=== PATIENT | male | born 1970 | race Caucasian/White ===

== ENCOUNTER 2020-06-06 20:12 | Emergency (ER) | payer SELFPAY ==
[2020-06-06] MEDS ORDERED: KETOROLAC TROMETHAMINE INJ/PF 30 MG/1 ML SDV IV ONE (21:10)
[2020-06-06] MEDS ORDERED: PROCHLORPERAZINE EDISYLATE INJ 10 MG/2 ML VIAL IV ONE (21:10)
[2020-06-06] MEDS: NORMAL SALINE 1000 ML 1,000 ML IV PRN ×2 (21:37→22:37)
[2020-06-06 21:47] LABS: ABSOLUTE EOSINOPHILS # (AUTO) 0.1 10^3/uL (0.0-0.6); ABSOLUTE LYMPHOCYTES (AUTO) 1.4 10^3/uL (0.5-4.7); ABSOLUTE MONOCYTES (AUTO) 0.9 10^3/uL (0.1-1.4); ABSOLUTE NEUT (AUTO) 6.4 10^3/uL (1.7-8.2); BASOPHILS % (AUTO) 0.5 % (0-2); EOSINOPHILS % (AUTO) 0.7 % (0-6); HEMATOCRIT 38.6 % (37.9-51.0); HEMOGLOBIN 13.3 g/dL (13.5-17.0); LYMPHOCYTES % (AUTO) 16.5 % (13-45); MEAN CORPUSCULAR HEMOGLOBIN 28.2 pg (27.0-33.4); MEAN CORPUSCULAR HGB CONC 34.6 g/dL (32.0-36.0); MEAN CORPUSCULAR VOLUME 82 fl (80-97); MONOCYTES % (AUTO) 9.7 % (3-13); PLATELET COUNT 309 10^3/uL (150-450); RED BLOOD COUNT 4.73 10^6/uL (4.35-5.55); RED CELL DISTRIBUTION WIDTH 14.8 % (11.5-14.0); SEGMENTED NEUTROPHILS % (AUTO) 72.6 % (42-78); TOTAL CELLS COUNTED % (AUTO) 100 %; WHITE BLOOD COUNT 8.8 10^3/uL (4.0-10.5)
[2020-06-06 22:07] LABS: ALBUMIN 3.5 g/dL (3.5-5.0); ALKALINE PHOSPHATASE 72 U/L (38-126); ANION GAP 6 (5-19); ASPARTATE AMINO TRANSFERASE 33 U/L (17-59); BILIRUBIN,DIRECT 0.4 mg/dL (0.0-0.4); BILIRUBIN,TOTAL 0.7 mg/dL (0.2-1.3); BLOOD UREA NITROGEN 13 mg/dL (7-20); CALCIUM 8.6 mg/dL (8.4-10.2); CARBON DIOXIDE 28 mmol/L (22-30); CHLORIDE 99 mmol/L (98-107); CREATINE KINASE 66 U/L (55-170); GLUCOSE 193 mg/dL (75-110); PHOSPHORUS 3.4 mg/dL (2.5-4.5); POTASSIUM 3.4 mmol/L (3.6-5.0); TOTAL PROTEIN 6.5 g/dL (6.3-8.2)
[2020-06-06 22:08] LABS: ACETAMINOPHEN < 10 ug/mL (10-30); SALICYLATE < 1.0 mg/dL (2.0-20.0)
[2020-06-06] MEDS ORDERED: POTASSIUM CHLORIDE 10 MEQ TABLET.ER PO ONE (22:31)
--- NOTE | 2020-06-06 22:42 | ER Document Report ---
ED General - General Chief Complaint: Headache Stated Complaint: FEVER,HEADACHE, NOSE BLEED Notes: 49-year-old male no significant past medical history presents with 1 week of fever associated with intermittent bilateral frontal headache, myalgia, muscle cramps, rhinorrhea, and generalized malaise. Patient says he has had similar symptoms when he has been sick in the past with flu but came to the ED today because symptoms have been taking too long to resolve. Patient says he has been taking Tylenol "every 4 hours "for his pain which temporarily relieves his sym ptoms but then they returned. Patient endorses having had similar headaches in the past when he has had fever or viruses, but has been irritated that this 1 has lasted for so long. Patient says he is sure he does not have COVID but cannot give me any reasons why, has not had any COVID testing. Patient denies any neck pain or stiffness, sinus pain, throat pain, cough, shortness of breath, dizziness, fainting, hypertension/hyperlipidemia/diabetes, HIV history, immune compromise, sick contacts, recent travel, rashes, drug use - Related Data Allergies/Adverse Reactions: No Known Allergies Allergy (Unverified 06/06/20 20:44) Past Medical History - General Information source: Patient - Social History Smoking Status: Current Every Day Smoker Family History: Reviewed & Not Pertinent Review of Systems - Review of Systems Notes: REVIEW OF SYSTEMS: CONSTITUTIONAL : + fever, chills, or sweats. EENT: Denies recent sinus symptoms, denies throat pain CARDIOVASCULAR: Denies chest pain, [place] RESPIRATORY: Denies cough, denies shortness of breath. GASTROINTESTINAL: Denies abdominal pain, nausea/vomiting. GENITOURINARY: Denies difficulty urinating, painful urination. MUSCULOSKELETAL: Denies neck pain, back pain. SKIN: Denies rash or skin lesions. HEMATOLOGIC : Denies easy bruising or bleeding. LYMPHATIC: Denies swollen, enlarged glands. NEUROLOGICAL: + headache, denies change in gait. PSYCHIATRIC: Denies anxiety or stress or depression. Physical Exam - Vital signs Vitals: Temp Pulse Resp BP Pulse Ox 98.0 F 103 H 20 119/79 99 06/06/20 20:19 06/06/20 20:19 06/06/20 20:19 06/06/20 20:19 06/06/20 20:19 - Notes Notes: PHYSICAL EXAMINATION: GENERAL: Well-appearing, well-nourished, mildly uncomfortable appearing middle- aged man appearing younger than stated age and in no acute distress. HEAD: Atraumatic, normocephalic. EYES: Pupils equal round and appropriate constriction, sclera anicteric, c onjunctiva are normal. ENT: nares patent, dry mucous membranes. NECK: Normal range of motion, supple without lymphadenopathy LUNGS: Breath sounds clear to auscultation bilaterally and equal. No wheezes rales or rhonchi. HEART: Regular rate and rhythm without murmurs ABDOMEN: Soft, nontender, no guarding, no masses, no CVAT EXTREMITIES: Normal range of motion, no pitting or edema. No cyanosis. NEUROLOGICAL: Awake, alert, conversing appropriately, moves all extremities spontaneously. Cranial nerves II through XII intact bilaterally, normal wrnlry-ro-avpm bilaterally, 5 out of 5 strength in all extremities, normal sensation in all extremities PSYCH: Normal mood, normal affect. SKIN: Warm, Dry, normal turgor, no rashes or lesions noted. Course - Re-evaluation Re-evalutation: 06/06/20 23:33 Patient with 1 week of flulike symptoms. Headache intermittent and not consistent with meningitis, intracranial hemorrhage, brain abscess, increased ICP, no red flags on history and no neuro symptoms and normal neuro exam. Headache likely secondary to dehydration from insensible losses from 1 week of viral symptoms with increased sensible losses and patient not increasing p.o. intake to compensate. Obtain CK to rule out rhabdo and BMP to assess electrolytes. Sodium very mildly decreased and potassium was mildly decreased. Gave supplemental potassium and instructed patient on increasing p.o. fluid and electrolyte intake. Patient's glucose was 193 which is above the level that would be expected from transient hypoglycemia from infection and I informed patient of this finding and told him that he might have developed diabetes and that he needs to follow this with a primary doctor. No DKA currently present, I gave patient return to ED precautions for worsening viral symptoms, headache, signs of meningitis, DKA, HONK, electrolyte abnormalities, rhabdo, myocarditis which he demonstrated understanding of. Patient ready for discharge with PCP follow-up. Patient given copy of all lab results to bring to PCP appointment. The patient was evaluated during the global COVID-19 pandemic and that diagnosis was suspected/considered upon their initial presentation. Their evaluation, treatment and testing was consistent with current guidelines for patients who present with complaints or symptoms that may be related to COVID-19. - Vital Signs Vital signs: Temp Pulse Resp BP Pulse Ox 97.9 F 85 16 102/59 L 98 06/06/20 22:45 06/06/20 22:45 06/06/20 22:45 06/06/20 22:45 06/06/20 22:45 - Laboratory Result Diagrams: 06/06/20 21:36 06/06/20 21:36 Laboratory results interpreted by me: 06/06/20 06/06/20 21:36 21:36 Hgb 13.3 L RDW 14.8 H Sodium 133.4 L Potassium 3.4 L Glucose 193 H Salicylates < 1.0 L Acetaminophen < 10 L Discharge - Discharge Clinical Impression: Viral syndrome, Hyperglycemia, Hypokalemia, Hyponatremia Headache Qualifiers: Headache type: unspecified Headache chronicity pattern: acute headache Intractability: not intractable Qualified Code(s): R51 - Headache Condition: Stable Disposition: HOME, SELF-CARE Additional Instructions: Hyponatremia You have an abnormally low level of serum sodium, called hyponatremia. Low serum sodium may cause weakness, fatigue, confusion, or even seizures. Usually, low sodium is due to taking diuretics (water pills), combined with drinking too much water. It can also be due to excessive vomiting or diarrhea. If no obvious cause is evident, further evaluation will be necessary. If the hyponatremia results from taking diuretics, it's treated by restricting the amount of water you can drink. If it's due to vomiting and diarrhea, it's treated by drinking liberal amounts of rehydration solution (for example Lytren or Pedialyte). A follow-up blood test is often done to see that the sodium is returning to normal. Call the physician if you have severe weakness, muscle twitching or cramping, palpitations (pounding or irregular heartbeat), confusion, headache, seizures, or any other new or alarming symptoms.Hyponatremia You have an abnormally low level of serum sodium, called hyponatremia. Low serum sodium may cause weakness, fatigue, confusion, or even seizures. Usually, low sodium is due to taking diuretics (water pills), combined with drinking too much water. It can also be due to excessive vomiting or diarrhea. If no obvious cause is evident, further evaluation will be necessary. If the hyponatremia results from taking diuretics, it's treated by restricting the amount of water you can drink. If it's due to vomiting and diarrhea, it's treated by drinking liberal amounts of rehydration solution (for example Lytren or Pedialyte). A follow-up blood test is often done to see that the sodium is returning to normal. Call the physician if you have severe weakness, muscle twitching or cramping, palpitations (pounding or irregular heartbeat), confusion, headache, seizures, or any other new or alarming symptoms. Hyperglycemia (High Blood Sugar) You have an abnormally high blood sugar. Not all high blood sugar requires long-term treatment. High blood sugar can be due to medications, or the stress of illness. (These cases are "borderline diabetes.") If the doctor feels your high blood sugar might resolve with time, you may not require treatment now. You must see a primary doctor for further evaluation. It's very important that you follow through, to see if the blood sugar returns to normal levels. Uncontrolled high blood sugar leads to early heart disease, strokes, nerve damage, eye damage, and kidney damage. Call the physician if there is faintness, excess sleepiness, or very rapid breathing. Patient was provided with discharge information including: As a person under investigation for Covid 19, the [place] department of Health and Human Services, division of public health advises you to adhere to the following guidance until your test results are reported to you. If your test result is positive, you will receive additional information from your provider and your local health department at that time. Remain at home until you are cleared by the health provider or public health authorities. Keep a log of visitors to your home, notify any visitors to your home of your is olation status. If you plan to move to a new address or leave the county, notify the local health department in your County. Call your doctor or seek care if you have an urgent medical need. Before seeking medical care, call ahead to get instructions from the provider before arriving at the medical office clinic or hospital. Notify them that you are being tested for the virus that causes Covid 19 so that arrangements can be made, as necessary, to prevent transmission to others in the healthcare setting. Next, notify the local health department in your county. If a medical emergency arises and you need to call 911, inform the first responders that you are being tested for the virus that causes Covid 19. Next, notify the local health department in your county. Your sodium and potassium were mildly low during this visit, it is important that you increase your intake of electrolytes and fluids over the next week. Your blood sugar was also elevated and this may be a sign that you are developing diabetes which could also have contributed to your dehydration. It is extremely important that you follow-up with your primary doctor within 1 week. If you have any worsening symptoms, worsening headache, vomiting, shortness of breath, dizziness, chest pain, fainting, rash, change in how you speak, how you talk, or how you talk, change in vision, confusion, neck pain or stiffness, any other worsening or alarming symptoms return to the emergency department immediately. Only take [id number] pain medications as indicated on the bottle. Taking too much Tylenol/acetaminophen can cause liver failure and taking too much ibuprofen/Aleve/Motrin/other NSAIDs can cause kidney failure.
[2020-06-07 00:11] VITALS: BP 104/63
== END 2020-06-06 23:53 | disposition home or self-care (01) ==
LOC: ER 20:12
DX: R50.9 Fever, unspecified (principal); R51 Headache; B34.9 Viral infection, unspecified; E87.1 Hypo-osmolality and hyponatremia; E87.6 Hypokalemia; R73.9 Hyperglycemia, unspecified; M79.10 Myalgia, unspecified site; R25.2 Cramp and spasm; J34.89 Other specified disorders of nose and nasal sinuses; R53.81 Other malaise; F17.200 Nicotine dependence, unspecified, uncomplicated; Z20.828 Contact with and (suspected) exposure to other viral communicable diseases
CPT/HCPCS: 99284; 96361; 96374; 96375; 36415; 82550; 83735; 84100; 80307 ×2; 85025; 87635; 80053; J1885; J0780; J7030; C9803

== ENCOUNTER 2020-06-21 00:06 | Inpatient (IN) | payer SELFPAY ==
--- NOTE | 2020-06-21 01:13 | ER Document Report ---
ED Medical Screen (RME) - General Chief Complaint: Eye Pain Stated Complaint: BOTH EYE PAIN Time Seen by Provider: 06/21/20 01:08 Mode of Arrival: Ambulatory Information source: Patient Notes: 49-year-old male coming in today with 2 weeks of severe frontal headaches, injected bilaterally, and pupillary discrepancy. Right pupil is constricted and minimally reactive while left pupil is normal appearance General: Looks uncomfortable Eye exam bilateral conjunctivitis. Right pupil constricted and minimal reactivity and left pupil normally reactive Cardiac regular rate and rhythm Pulmonary clear to auscultation I have greeted and performed a rapid initial assessment of this patient. A comprehensive ED assessment and evaluation of the patient, analysis of test results and completion of the medical decision making process will be conducted by additional ED providers. - Related Data Allergies/Adverse Reactions: No Known Allergies Allergy (Unverified 06/06/20 20:44)
[2020-06-21] MEDS ORDERED: OXYCODONE-ACETAMINOPHEN 5-325 MG TABLET PO ONE (01:15)
--- NOTE | 2020-06-21 01:43 | RADIOLOGY REPORT (SQ) ---
CLINICAL HISTORY: severe resendiz's, bilat eye redness COMPARISON: None. TECHNIQUE: CT HEAD WITHOUT IV CONTRAST on 06/21/2020 1:08 AM CDT This exam was performed according to our departmental dose-optimization program, which includes automated exposure control, adjustment of the mA and/or kV according to patient size and/or use of iterative reconstruction technique. FINDINGS: There is no acute hemorrhage, mass effect or midline shift. Baugh-white differentiation is preserved. There is no hydrocephalus. There is no significant volume loss for age. The calvarium is intact. Orbits and globes are unremarkable. The paranasal sinuses are clear. Mastoid air cells are clear. IMPRESSION: No acute intracranial findings.
[2020-06-21 01:53] LABS: ABSOLUTE BASOPHILS # (AUTO) 0.1 10^3/uL (0.0-0.2); ABSOLUTE EOSINOPHILS # (AUTO) 0.3 10^3/uL (0.0-0.6); ABSOLUTE LYMPHOCYTES (AUTO) 2.3 10^3/uL (0.5-4.7); ABSOLUTE MONOCYTES (AUTO) 0.8 10^3/uL (0.1-1.4); BASOPHILS % (AUTO) 1.2 % (0-2); EOSINOPHILS % (AUTO) 2.8 % (0-6); HEMATOCRIT 40.8 % (37.9-51.0); HEMOGLOBIN 14.2 g/dL (13.5-17.0); MEAN CORPUSCULAR HEMOGLOBIN 28.8 pg (27.0-33.4); MEAN CORPUSCULAR HGB CONC 34.8 g/dL (32.0-36.0); MEAN CORPUSCULAR VOLUME 83 fl (80-97); MONOCYTES % (AUTO) 7.4 % (3-13); PLATELET COUNT 683 10^3/uL (150-450); RED BLOOD COUNT 4.94 10^6/uL (4.35-5.55); RED CELL DISTRIBUTION WIDTH 15.1 % (11.5-14.0); SEGMENTED NEUTROPHILS % (AUTO) 66.6 % (42-78); TOTAL CELLS COUNTED % (AUTO) 100 %; WHITE BLOOD COUNT 10.5 10^3/uL (4.0-10.5)
[2020-06-21 02:02] LABS: ALBUMIN 4.1 g/dL (3.5-5.0); ALKALINE PHOSPHATASE 86 U/L (38-126); ANION GAP 10 (5-19); ASPARTATE AMINO TRANSFERASE 19 U/L (17-59); BILIRUBIN,DIRECT 0.3 mg/dL (0.0-0.4); BILIRUBIN,TOTAL 0.6 mg/dL (0.2-1.3); BLOOD UREA NITROGEN 20 mg/dL (7-20); CALCIUM 9.7 mg/dL (8.4-10.2); CARBON DIOXIDE 30 mmol/L (22-30); CHLORIDE 100 mmol/L (98-107); GLUCOSE 154 mg/dL (75-110); POTASSIUM 4.7 mmol/L (3.6-5.0); TOTAL PROTEIN 7.6 g/dL (6.3-8.2)
--- NOTE | 2020-06-21 02:02 | ER Document Report ---
ED General - General Chief Complaint: Eye Pain Stated Complaint: BOTH EYE PAIN Time Seen by Provider: 06/21/20 01:08 Mode of Arrival: Ambulatory - HPI Notes: 49-year-old male presents with eye pain and headache. Patient states that his eyes have been hurting for a long time, further clarified as the past 2 weeks. His eyes have been red and tearing. He reports some intermittent double vision and blurry vision. He denies any known eye injury. He states he has not put anything into his eye. However he has been putting potatoes on his eyelids. He also has had a severe frontal headache, onset the same time as the eye pain. He believes that his pupils have been unequal for the past few days, he is not able to give exact time, states he has not been looking in the mirror recently. states that this seems to of all started after he had a COVID swab, reports that he had a "fever of 102 for 2 weeks", COVID swab was negative. Fevers have resolved. - Related Data Allergies/Adverse Reactions: No Known Allergies Allergy (Verified 06/21/20 07:34) Past Medical History - General Information source: Patient - Social History Smoking Status: Current Every Day Smoker Family History: Reviewed & Not Pertinent Review of Systems - Review of Systems Constitutional: denies: Fever EENT: Eye pain, Blurred vision, Tearing, Sinus pressure Cardiovascular: No symptoms reported Respiratory: No symptoms reported Gastrointestinal: No symptoms reported Genitourinary: No symptoms reported Musculoskeletal: No symptoms reported Skin: No symptoms reported Neurological/Psychological: Headaches Physical Exam - Vital signs Vitals: Temp Pulse Resp BP Pulse Ox 98.6 F 64 20 132/74 H 100 06/21/20 03:17 06/21/20 03:17 06/21/20 03:17 06/21/20 03:17 06/21/20 03:17 - General General appearance: Alert Notes: Appears to not be feeling well, overall nontoxic - HEENT Head: Normocephalic, Atraumatic Eyes: Tears - Right eye Conjunctiva: Injected - Bilaterally Extraocular movements intact: Yes -: right: Pupils uneven - Right pupil is approximately 2 mm and reactive to ligh t. Left pupil is approximately 4 mm and reactive to light. Consensual reflex is intact. Notes: Patient refusing full eye exam at this time - Respiratory Breath sounds: Normal - Cardiovascular Rhythm: Regular - Abdominal Tenderness: Nontender - Extremities General upper extremity: Normal ROM General lower extremity: Normal ROM - Neurological Neuro grossly intact: Yes Cognition: Normal Orientation: AAOx4 Motor strength normal: LUE, RUE, LLE, RLE - Psychological Associated symptoms: Normal affect - Skin Skin Temperature: Warm Course - Re-evaluation Re-evalutation: 49-year-old male with bilateral eye pain, conjunctival injection and frontal headache ongoing for 2 weeks. Seen in the ED on 06/09 for flulike illness, COVID swab negative. On exam patient is alert, somewhat irritable, overall nontoxic appearing. There is a pupillary discrepancy of the right pupil, it is reactive to light and consensual reflex is intact. The eye has been tearing and he frequently wipes it as well. Refusing full eye exam at this time. Concern for cluster headache versus migraine versus post viral syndrome. He currently does not exhibit signs of meningitis. Given the pupillary discrepancy, will obtain a CTA of the head to assess for aneurysm. Start symptomatic control with Compazine, Benadryl and fluids. 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 I went in to update patient and his . He states that his headache has eased off some. His pupils remain unequal, overall neurologically intact. 06/21/20 05:27 [facility] transfer center call, consult placed to neurosurgery 06/21/20 06:[address] Ramey, he will review imaging. He recommended LP to assess for xanthochromia 06/21/20 06:17 Discussed need for LP with patient, he gave verbal consent. 06/21/20 06:44 LP performed, fluid appeared clear. Being sent to lab but now. Patient tolerated well. Complains that his headache has returned, will trial morphine. 06/21/20 07:39 Dr Ramey called back, he reviewed the CTA report. He does not believe that an A1 aneurysm is present, there is no A1 segment. He states that if the CSF studies result in positive xanthochromia, then he will accept the patient in transfer for an angiogram. He states that there is no xanthochromia, then no transfer, however he would be happy to see the patient in his office for follow- up to discuss outpatient angiogram, his contact number is [phone] 06/21/20 07:46 Called to lab, appears clear when spun down 06/21/20 07:59 MRI ordered to further assess any causes for pupillary discrepancy 06/21/20 08:05 Discussed case with ophthalmology, Dr. Singh, he will see patient in the emergency department. Care to be turned over to Dr. Hidalgo, pending MRI and ophthalmology consult - Vital Signs Vital signs: Temp Pulse Resp BP Pulse Ox 98.0 F 60 15 117/75 93 06/21/20 07:01 06/21/20 05:32 06/21/20 07:01 06/21/20 07:01 06/21/20 07:01 - Laboratory Result Diagrams: 06/21/20 01:38 06/21/20 01:38 Laboratory results interpreted by me: 06/21/20 06/21/20 01:38 01:38 RDW 15.1 H Plt Count 683 H Creatinine 1.35 H Est GFR (MDRD) Non-Af 56 L Glucose 154 H - Diagnostic Test Radiology reviewed: Image reviewed, Reports reviewed Procedures - Lumbar Puncture Lumbar puncture Time completed: 06:40 Consent obtained: Yes Lumbar puncture pre-procedure: Sterile PPE donned, Betadine prep applied, Chloraprep applied, Sterile drapes applied Patient position: Sitting Needle size: 20 Lumbar puncture location: L4 Anesthetic type: 1% Lidocaine mL's of anesthetic: 3 Amount/type of drainage: 4 cc of clear spinal fluid collected Number of attempts: 1 Complications: No Discharge - Discharge Clinical Impression: Severe frontal headaches, Pupillary abnormality of right eye Disposition: OTHER
[2020-06-21] MEDS ORDERED: RINGERS SOLUTION,LACTATED 1,000 ML IV ONE (02:15)
[2020-06-21] MEDS ORDERED: DIPHENHYDRAMINE HCL 50 MG/ML VIAL IV ONE (02:15)
[2020-06-21] MEDS ORDERED: PROCHLORPERAZINE EDISYLATE INJ 10 MG/2 ML VIAL IV ONE (02:15)
[2020-06-21 02:21] LABS: INTERNATIONAL RATION (INR) 0.94; PROTHROMBIN TIME 12.8 SEC (11.4-15.4)
[2020-06-21 02:22] LABS: PARTIAL THROMBOPLASTIN TIME 31.8 SEC (23.5-35.8)
--- NOTE | 2020-06-21 05:17 | RADIOLOGY REPORT (SQ) ---
CTA brain: Technique: Postcontrast imaging was obtained through the head after intravenous contrast is administered utilizing a CTA protocol. MIP reconstructed sagittal and coronal images were also obtained. This exam was performed according to our departmental dose-optimization program, which includes automated exposure control, adjustment of the mA and/or KV according to the patient's size and/or use of iterative reconstruction technique. COMPARISON: CT the head from 06/21/2020 HISTORY: 49-year-old patient with concern for an headache, pupil discrepancy FINDINGS: No discrete filling defect is seen within the middle, anterior, and posterior cerebral arteries. The bilateral posterior to indicating arteries are not well visualized. The right A1 segment is not visualized, which can be a normal variant. The right vertebral artery appears to be dominant.. The carotid arteries appear to be well opacified. There is a 2 mm medially directed infundibulum or aneurysm at the expected area of the right A1. This is best seen on the coronal imaging. The basilar artery and visualized portions of the posterior circulation appear unremarkable. 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 No focal filling defect is otherwise seen.
[2020-06-21] MEDS ORDERED: LIDOCAINE 1% INJ-PF (10 MG/ML) 30 ML SDV INJ ONE (06:06)
[2020-06-21] MEDS ORDERED: MORPHINE SULFATE 10 MG/ML INJ IV ONE ×2 (06:44→10:15)
[2020-06-21 07:29] LABS: GLUCOSE,CSF 66 mg/dL (40-70); PROTEIN,CSF 26 mg/dL (12-60)
[2020-06-21 08:09] LABS: APPEARANCE ALL TUBES CLEAR; COLOR ALL TUBES COLORLESS; CSF TUBE NUMBER 1; VOLUME TUBE 2 1.2 CC
[2020-06-21 08:10] LABS: CSF TOTAL VOLUME 4.4 CC; RED BLOOD CELL,CSF 51 /uL (0-10); VOLUME TUBE 4 1.2 CC; WHITE BLOOD CELL,CSF 32 /uL (0-5)
[2020-06-21 08:11] LABS: APPEARANCE ALL TUBES CLEAR; COLOR ALL TUBES COLORLESS; CSF TOTAL VOLUME 4.4 CC; CSF TUBE NUMBER 4; RED BLOOD CELL,CSF 1 /uL (0-10); VOLUME TUBE 2 1.2 CC; VOLUME TUBE 4 1.2 CC
[2020-06-21 08:12] LABS: WHITE BLOOD CELL,CSF 34 /uL (0-5)
[2020-06-21 08:37] LABS: MONONUCLEAR CELLS CSF 100 %; POLYMORPHONUCLEAR CELLS CSF 0 %
[2020-06-21 08:41] LABS: MONONUCLEAR CELLS CSF 99 %; POLYMORPHONUCLEAR CELLS CSF 1 %
[2020-06-21] MEDS ORDERED: ACYCLOVIR SODIUM INJ/PF 500 MG/10 ML SDV IV ONE (08:53)
[2020-06-21] MEDS ORDERED: CEFTRIAXONE INJ 1000 MG VIAL IV ONE (08:56)
[2020-06-21] MEDS ORDERED: VANCOMYCIN HCL INJ 1000 MG VIAL IV ONE ×2 (08:57→13:00)
[2020-06-21] MEDS ORDERED: DEXAMETHASONE SOD PHOS INJ 10 MG/1 ML VIAL IV ONE (09:06)
--- NOTE | 2020-06-21 09:43 | RADIOLOGY REPORT (SQ) ---
EXAM DESCRIPTION: MRI HEAD COMBO IMAGES COMPLETED DATE/TIME: 06/21/2020 9:21 am REASON FOR STUDY: severe headache, R pupillary discepancy COMPARISON: 06/21/2020 TECHNIQUE: Multiplanar imaging includes noncontrasted T1, T2, FLAIR, diffusion with ADC map and post gadolinium contrast T1 sequences. Images stored on PACS. CONTRAST TYPE AND DOSE: 20 mL Prohance. RENAL FUNCTION: Not indicated. ACR Type II contrast agent associated with few, if any, unconfounded cases of NSF LIMITATIONS: None. FINDINGS: ANATOMY: No anomalies. Normal vascular flow voids. Pituitary fossa normal. CSF SPACES: Normal in size and contour. No hemorrhage. CEREBRUM: Sulci and gyri normal in size and contour. Normal white matter signal on FLAIR imaging. No evidence of hemorrhage, mass, or extraaxial fluid collection. No abnormal enhancement post contrast. POSTERIOR FOSSA: No signal alteration. No hemorrhage. No edema, masses, or mass effect. Internal jennifer tory canals, cerebellopontine angles, mastoids normal. No enhancing lesions. No abnormal enhancement post contrast. DIFFUSION IMAGING: Negative for acute or subacute infarction. ORBITS: No masses. Globes intact. PARANASAL SINUSES: No fluid levels. Mucosa normal. OTHER: No other significant finding. IMPRESSION: NORMAL MRI OF THE BRAIN WITHOUT AND WITH INTRAVENOUS GADOLINIUM CONTRAST. EVIDENCE OF ACUTE STROKE: NO. TECHNICAL DOCUMENTATION: JOB ID: [id number] [employer]- All Rights Reserved Reading location - IP/workstation name: [email or web address]
[2020-06-21] MEDS ORDERED: ACETAMINOPHEN 325 MG TABLET PO PRN (10:58)
[2020-06-21] MEDS ORDERED: OXYCODONE-ACETAMINOPHEN 5-325 MG TABLET PO PRN (10:58)
[2020-06-21] MEDS ORDERED: MAG HYDROX/AL HYDROX/SIMETH SUSP 30 ML UDCUP PO PRN (10:58)
[2020-06-21] MEDS ORDERED: ONDANSETRON HCL INJ/PF 4 MG/2 ML SDV IV PRN (10:58)
[2020-06-21] MEDS ORDERED: MAGNESIUM HYDROXIDE SUSP 30 ML UDCUP PO PRN (10:58)
[2020-06-21] MEDS ORDERED: VANCOMYCIN HCL 0 MG in DEXTROSE 5%-WATER 250 ML IV NR (11:15)
[2020-06-21] MEDS: RINGERS SOLUTION,LACTATED 1,000 ML IV PRN ×2 (11:46→18:33)
[2020-06-21] MEDS: DEXAMETHASONE SOD PHOS INJ 10 MG/1 ML VIAL IV SCH ×2 (13:55→18:33)
[2020-06-21] MEDS: VANCOMYCIN HCL 1,500 MG in DEXTROSE 5%-WATER 250 ML IV SCH ×2 (14:32→22:14)
--- NOTE | 2020-06-21 16:13 | PDOC H&P ---
History of Present Illness Admission Date/PCP: 06/21/20 11:11 Patient complains of: Diplopia, ophthalmalgia, headache, aniscoria History of Present Illness: THOMAS ISRAEL is a 49 year old male who presented the ED today with concerns regarding 2 week history of ophthalmalgia with associated diplopia, blurred vision, pupillary discrepancy, epiphora, corneal injection, night sweats and frontal headache. Denies associated trauma. Patient was seen at [facility] ED on 06/06/2020 regarding fever, headache and flu like symptoms. Full work up including negative COVID-19 test completed at that time. He was treated with fluids, electrolyte repletion and d/c home with instruction to f/u with his PCP. Flu like symptoms and fever have since resolved, though headache has persisted. On evaluation in the ED pt was hemodynamically stable. Pupillary discrepancy (right 2mm, left 4mm) noted on physical exam, otherwise no signs of meningisumus or neurological deficits. CBC and chemistries significant for elevated thrombocythemia (683), creatinine (1.35) and hyperglycemia (154). Head CT, CTA and MRI without acute findings. CSF was colorless with 34 WBCs, 99 mononuclears and 1 polymorphonuclear. CSF gram stain/cultures, blood cultures and HSV PCR pending. He received single dose of acyclovir, vancomycin, ceftriaxone, and dexamethasone and was subsequently referred to the hospitalist service for further evaluation and treatment. Upon further questioning patient denies fever, decreased vision, slurred speech, chest pain, cough, shortness of breath, abdominal pain, NVD, numbness/tingling or rash. Further denies known/recent tick exposure. He is an every day smoker. No further questions or concerns expressed at this time. Past Medical History Medical History: None Past Surgical History Past Surgical History: Reports: None Social History Information Source: Patient Lives with: Family Smoking Status: Current Every Day Smoker - Advance Directive Resuscitation Status: Full Code Family History Family History: None Parental Family History Reviewed: Yes Children Family History Reviewed: Yes Sibling(s) Family History Reviewed.: Yes Medication/Allergy Home Medications: No Home Medications 06/21/20 Allergies/Adverse Reactions: No Known Allergies Allergy (Verified 06/21/20 07:34) Review of Systems Constitutional: PRESENT: headache(s). ABSENT: anorexia, chills, fever(s) Eyes: PRESENT: as per HPI - Eye pain, double vision, tearing, sinus pressure, visual disturbances Ears: ABSENT: hearing changes Nose, Mouth, and Throat: PRESENT: headache(s). ABSENT: vertigo Cardiovascular: ABSENT: chest pain, dyspnea on exertion, palpitations Respiratory: ABSENT: cough, dyspnea Gastrointestinal: ABSENT: abdominal pain, diarrhea, nausea, vomiting Physical Exam Vital Signs: Temp Pulse Resp BP Pulse Ox 99.0 F 60 12 117/67 97 06/21/20 10:03 06/21/20 05:32 06/21/20 11:01 06/21/20 11:01 06/21/20 11:01 Intake & Output 06/20/20 06/21/20 06/22/20 06:59 06:59 06:59 Intake Total 1000 250 Balance 1000 250 Weight 106.7 kg General appearance: PRESENT: cooperative, well-developed, other - Moderate distress Head exam: PRESENT: atraumatic, normocephalic Eye exam: PRESENT: conjunctival injection, EOMI, other - Pupillary discrepency. Right pupil 2mm, left pupil 4mm. Ear exam: PRESENT: normal external ear exam. ABSENT: bleeding, drainage Mouth exam: PRESENT: moist, tongue midline Neck exam: PRESENT: full ROM. ABSENT: meningismus, tenderness Respiratory exam: PRESENT: clear to auscultation teena, symmetrical, unlabored. ABSENT: crackles, tachypnea, wheezes Cardiovascular exam: PRESENT: RRR, +S1, +S2. ABSENT: diastolic murmur, systolic murmur Pulses: PRESENT: normal radial pulses GI/Abdominal exam: PRESENT: normal bowel sounds, soft. ABSENT: ascites, distended, firm, guarding, rigid, tenderness Rectal exam: PRESENT: deferred Extremities exam: PRESENT: full ROM. ABSENT: clubbing, pedal edema Musculoskeletal exam: PRESENT: ambulatory, full ROM. ABSENT: deformity, dislocation Neurological exam: PRESENT: alert, awake, oriented to person, oriented to place, oriented to time, oriented to situation, CN II-XII grossly intact. ABSENT: motor sensory deficit Psychiatric exam: PRESENT: appropriate affect, normal mood Skin exam: PRESENT: dry, intact, warm Results Laboratory Results: 06/21/20 01:38 06/21/20 01:38 06/21/20 06/21/20 06/21/20 01:38 01:38 06:37 WBC 10.5 RBC 4.94 Hgb 14.2 Hct 40.8 MCV 83 MCH 28.8 MCHC 34.8 RDW 15.1 H Plt Count 683 H Seg Neutrophils % 66.6 Sodium 139.5 Potassium 4.7 Chloride 100 Carbon Dioxide 30 Anion Gap 10 BUN 20 Creatinine 1.35 H Est GFR ( Amer) > 60 Glucose 154 H Calcium 9.7 Total Bilirubin 0.6 AST 19 Alkaline Phosphatase 86 Total Protein 7.6 Albumin 4.1 Fluid Tube Number 1 CSF Volume 4.4 CSF Appearance CLEAR CSF Color COLORLESS CSF WBC 32 H CSF RBC 51 CSF Polymorphonuclear 0 CSF Glucose CSF Total Protein 06/21/20 06/21/20 06:37 06:37 WBC RBC Hgb Hct MCV MCH MCHC RDW Plt Count Seg Neutrophils % Sodium Potassium Chloride Carbon Dioxide Anion Gap BUN Creatinine Est GFR ( Amer) Glucose Calcium Total Bilirubin AST Alkaline Phosphatase Total Protein Albumin Fluid Tube Number 4 CSF Volume 4.4 CSF Appearance CLEAR CSF Color COLORLESS CSF WBC 34 H CSF RBC 1 CSF Polymorphonuclear 1 CSF Glucose 66 CSF Total Protein 26 Impressions: Head CT 06/21/20 01:08 IMPRESSION: No acute intracranial findings. 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 No focal filling defect is otherwise seen. Head MRI 06/21/20 07:56 IMPRESSION: NORMAL MRI OF THE BRAIN WITHOUT AND WITH INTRAVENOUS GADOLINIUM CONTRAST. EVIDENCE OF ACUTE STROKE: NO. Assessment and Plan - Diagnosis (1) Encephalitis, meningococcal Is this a current diagnosis for this admission?: Yes Plan: CSF significant for leukocytosis (WBC 34) with predominance of mononuclear cells (99) > PMNs (1); suggestive of viral cause > bacterial. CSF culture/gram stain/viral culture pending. Blood cultures pending. HSV PCR pending. CRP and ESR pending. Repeat CBC and BMP with morning labs. Empirically treat with Acyclovir, Vancomycin, Ceftriaxone and Dexamethason. Monitor patient closely with routine VS q4 hours and checks for symptom progression. (2) Anisocoria Is this a current diagnosis for this admission?: Yes Plan: Pupillary discretion R 2mm, L 4mm. CT without lesion. Suspect secondary to meningeal encephalitis, will treat as above. Suspect gradual improvement in symptoms with treatment therapy. (3) Severe frontal headaches Is this a current diagnosis for this admission?: Yes Plan: Suspect secondary to meningococcal encephalitis, will treat as above. Can utilize Percocet for the pain. (4) Diplopia Is this a current diagnosis for this admission?: Yes Plan: Suspect secondary to meningococcal encephalitis, will treat as above. Suspect symptoms will improve with treatment progression. (5) Hyperglycemia Is this a current diagnosis for this admission?: Yes Plan: Hyperglycemia without known history of diabetes. Blood sugar today 154. Reviewed labs from 06/06/2020, elevated blood sugar 193. Patient denies polyruia or polydipsia. Will order hemaglobin A1c. Continue to monitor on BMP. Consider Accu-checks with meals and before bed. (6) Thrombocythemia Is this a current diagnosis for this admission?: Yes Plan: Plt 683 on labs today, increased from plt count 06/06/2020 309. Suspect secondary to current inflammation/infection. Suspect this will improve with treatment. Initiate treatment with 81mg ASA daily. Monitor for improvement with daily labs. (7) Tobacco consumption Is this a current diagnosis for this admission?: Yes Plan: Smoking cessation encouraged. Nicotine replacement therapies provided. - Time Time Spent with patient: 35 or more minutes Smoking Cessation Education: 3 to 10 minutes Medications reviewed and adjusted accordingly: Yes Anticipated Discharge Disposition: Home, Self Care Anticipated Discharge Timeframe: within 72 hours - Inpatient Certification Based on my medical assessment, after consideration of the patient's comorbidities, presenting symptoms, or acuity I expect that the services needed warrant INPATIENT care.: Yes I certify that my determination is in accordance with my understanding of Medicare's requirements for reasonable and necessary INPATIENT services [42 CFR 412.3e].: Yes Medical Necessity: Failure to Improve With Outpatient Therapy, Need Close Monitoring Due to Risk of Patient Decompensation, Need For IV Fluids, Need for Neurological Checks, Need for Pain Control, Need for IV Antibiotics, Risk of Complication if Not Cared For in Hospital Post Hospital Care: D/C or Transfer Summary
[2020-06-21] MEDS: ACYCLOVIR SODIUM 1,000 MG in NORMAL SALINE 250 ML IV SCH (18:33)
[2020-06-21] MEDS ORDERED: NICOTINE 21 MG/24 HR PATCH.TD24 ONE (22:25)
[2020-06-22] MEDS: DEXAMETHASONE SOD PHOS INJ 10 MG/1 ML VIAL IV SCH ×3 (02:42→11:40)
[2020-06-22] MEDS ORDERED: NICOTINE 21 MG/24 HR PATCH.TD24 TD PRN (02:44)
[2020-06-22] MEDS: ACYCLOVIR SODIUM 1,000 MG in NORMAL SALINE 250 ML IV SCH ×2 (02:55→10:29)
[2020-06-22] MEDS: RINGERS SOLUTION,LACTATED 1,000 ML IV PRN (02:57)
[2020-06-22] MEDS ORDERED: PANTOPRAZOLE SODIUM 20 MG TABLET.DR PO SCH (06:00)
[2020-06-22 06:42] LABS: ABSOLUTE BASOPHILS # (AUTO) 0.1 10^3/uL (0.0-0.2); ABSOLUTE LYMPHOCYTES (AUTO) 1.4 10^3/uL (0.5-4.7); ABSOLUTE MONOCYTES (AUTO) 0.3 10^3/uL (0.1-1.4); ABSOLUTE NEUT (AUTO) 13.3 10^3/uL (1.7-8.2); BASOPHILS % (AUTO) 0.8 % (0-2); HEMATOCRIT 37.5 % (37.9-51.0); HEMOGLOBIN 12.9 g/dL (13.5-17.0); LYMPHOCYTES % (AUTO) 9.5 % (13-45); MEAN CORPUSCULAR HEMOGLOBIN 28.3 pg (27.0-33.4); MEAN CORPUSCULAR HGB CONC 34.4 g/dL (32.0-36.0); MEAN CORPUSCULAR VOLUME 82 fl (80-97); MONOCYTES % (AUTO) 2.1 % (3-13); PLATELET COUNT 500 10^3/uL (150-450); RED BLOOD COUNT 4.56 10^6/uL (4.35-5.55); RED CELL DISTRIBUTION WIDTH 14.6 % (11.5-14.0); SEGMENTED NEUTROPHILS % (AUTO) 87.6 % (42-78); TOTAL CELLS COUNTED % (AUTO) 100 %; WHITE BLOOD COUNT 15.2 10^3/uL (4.0-10.5)
[2020-06-22 06:47] LABS: INTERNATIONAL RATION (INR) 0.96
[2020-06-22 07:14] LABS: ANION GAP 11 (5-19); BLOOD UREA NITROGEN 18 mg/dL (7-20); C-REACTIVE PROTEIN 8.7 mg/L (<10.0); CALCIUM 9.7 mg/dL (8.4-10.2); CARBON DIOXIDE 21 mmol/L (22-30); CHLORIDE 101 mmol/L (98-107); GLUCOSE 288 mg/dL (75-110); POTASSIUM 4.7 mmol/L (3.6-5.0)
[2020-06-22 07:22] LABS: ERYTHROCYTE SEDIMENTATION RATE 53 mm/hr (0-15)
[2020-06-22] MEDS ORDERED: ENOXAPARIN SODIUM INJ 40 MG/0.4 ML DISP.SYRIN SUBCUT SCH (10:00)
[2020-06-22] MEDS: VANCOMYCIN HCL 1,500 MG in DEXTROSE 5%-WATER 250 ML IV SCH (10:29)
[2020-06-22] MEDS ORDERED: CEFTRIAXONE 1 GM/D5W RTU 1 GM/50 ML RTUPB IV SCH (12:00)
[2020-06-22 14:41] VITALS: BP 107/60
--- NOTE | 2020-06-22 15:43 | PDOC PROGRESS REPORT ---
Subjective Progress Note for:: 06/22/20 Subjective:: Patient has pulled IV's and refused placement of another. He has not been receiving treatment, but says he feels fine. VSS. Reason For Visit: MENINGEAL ENCEPHALITIS,HEADACHE,DIPLOPIA,ANISOCONA Physical Exam Vital Signs: Temp Pulse Resp BP Pulse Ox 98.6 F 101 H 15 107/60 97 06/22/20 11:18 06/22/20 11:18 06/22/20 11:18 06/22/20 11:18 06/22/20 11:18 Intake & Output 06/21/20 06/22/20 06/23/20 06:59 06:59 06:59 Intake Total 1000 3730 Balance 1000 3730 Weight 106.7 kg 111.4 kg General appearance: PRESENT: no acute distress, obese Head exam: PRESENT: atraumatic, normocephalic Eye exam: PRESENT: EOMI, scleral icterus, other - mils anisocoria. ABSENT: co njunctival injection, nystagmus Ear exam: PRESENT: normal external ear exam Respiratory exam: PRESENT: clear to auscultation teena, symmetrical, unlabored. ABSENT: accessory muscle use, chest wall tenderness, crackles, decreased breath sounds, prolonged expiratory phas, rhonchi, tachypnea, wheezes Cardiovascular exam: PRESENT: RRR, +S1, +S2 Pulses: PRESENT: normal carotid pulses Vascular exam: PRESENT: normal capillary refill GI/Abdominal exam: PRESENT: normal bowel sounds, soft. ABSENT: distended, guarding, rebound, tenderness Extremities exam: ABSENT: clubbing, pedal edema Musculoskeletal exam: PRESENT: normal inspection. ABSENT: deformity Neurological exam: PRESENT: awake, oriented to person, oriented to place, oriented to situation Skin exam: PRESENT: dry, warm Results Laboratory Results: 06/22/20 06:09 06/22/20 06:09 06/22/20 06/22/20 06:09 06:09 WBC 15.2 H RBC 4.56 Hgb 12.9 L Hct 37.5 L MCV 82 MCH 28.3 MCHC 34.4 RDW 14.6 H Plt Count 500 H Seg Neutrophils % 87.6 H Sodium 133.0 L Potassium 4.7 Chloride 101 Carbon Dioxide 21 L Anion Gap 11 BUN 18 Creatinine 0.98 Est GFR ( Amer) > 60 Glucose 288 H Calcium 9.7 Magnesium 2.1 C-Reactive Protein 8.7 Impressions: Head CT 06/21/20 01:08 IMPRESSION: No acute intracranial findings. 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 No focal filling defect is otherwise seen. Head MRI 06/21/20 07:56 IMPRESSION: NORMAL MRI OF THE BRAIN WITHOUT AND WITH INTRAVENOUS GADOLINIUM CONTRAST. EVIDENCE OF ACUTE STROKE: NO. Assessment and Plan - Diagnosis (1) Anisocoria Is this a current diagnosis for this admission?: Yes Plan: Currently asymptomatic, no more visual disturbance or headaches. Because of IV access (or lack thereof) he has mostly received suppoertive care only. Normal mental status. Mild elevated WBC on LP, mild-moderate ESR elevation. Possible low-grade and self-limited viral meningitis suspected. Recommend observation overnight with probable d/c home in AM, but patient may not be willing to wait that long and might sign out AMA. - Time Time Spent with patient: 15-24 minutes Anticipated Discharge Disposition: Home, Self Care Anticipated Discharge Timeframe: within 24 hours
--- NOTE | 2020-06-22 15:44 | Left Against Medical Advice ---
Against Medical Advice Admission Date/Time: 06/21/20 11:11 Primary Care Provider: Date of Patient Emigration: 06/22/20 - Diagnosis: (1) Anisocoria Is this a current diagnosis for this admission?: Yes - Summary: Summary: Please see Admission and Progress Notes as well. THOMAS ISRAEL is a 49 M, who LEFT AGAINST MEDICAL ADVICE. The Patient was admitted on 06/21/20 11:11.
== END 2020-06-22 15:35 | disposition left against medical advice (07) | DRG 123 ==
LOC: ER 00:06 → EH 11:11 → 3W 12:23
PROVIDERS: ADMIT Hospitalist; ATTEND Family Medicine
PROC: 00JU3ZZ Inspection of Spinal Canal, Percutaneous Approach (ICD-10-PCS; principal; 2020-06-21)
DX: H57.02 Anisocoria (principal); H49.9 Unspecified paralytic strabismus; H53.8 Other visual disturbances; H04.209 Unspecified epiphora, unspecified side; G44.89 Other headache syndrome; R73.9 Hyperglycemia, unspecified; F17.210 Nicotine dependence, cigarettes, uncomplicated; Z53.29 Procedure and treatment not carried out because of patient's decision for other reasons
CPT/HCPCS: 36415; 70450; 70496; 70553; 80048; 80053; 82945; 83036; 83735; 84157; 85025; 85610; 85652; 85730; 86140; 87040; 87070; 87205; 87252; 87529; 89050; 96361; 96365; 96375; 99285; A9576; J0133; J0780; J1100; J1200; J1650; J2270; J3370; J3490; J7050; J7060; J7120

== ENCOUNTER 2020-06-24 13:44 | Emergency (ER) | payer SELFPAY ==
[2020-06-24 13:55] VITALS: BP 141/95
--- NOTE | 2020-06-24 14:30 | ER Document Report ---
ED Medical Screen (RME) - General Chief Complaint: Medical Complaint Stated Complaint: EYE REDNESS,IRRITATION Time Seen by Provider: 06/24/20 14:22 Mode of Arrival: Ambulatory Information source: Patient Notes: 49-year-old male presented to ED for continued pain and redness to his eyes. He states he was admitted couple days ago stayed a couple days in the hospital and a bed and then he left AGAINST MEDICAL ADVICE. I did speak with Dr. Chan who was treating him when the patient decided to leave [facility]. He states he did have a possible meningitis but it did not look like a bacterial infection. He states he did have elevated levels and that he should have the blood work drawn and then the they will make a decision whether or not he needed to be readmitted. He states they were not treating him with antibiotics at the time because it did not look like it was a bacterial infection. I have greeted and performed a rapid initial assessment of this patient. A comprehensive ED assessment and evaluation of the patient, analysis of test results and completion of medical decision making process will be conducted by an additional ED providers. - Related Data Allergies/Adverse Reactions: No Known Allergies Allergy (Verified 06/21/20 07:34) Past Medical History Psychiatric Medical History: Denies: Hx Depression Physical Exam - Vital signs Vitals: Temp Pulse Resp BP Pulse Ox 98.6 F 88 16 141/95 H 99 06/24/20 13:53 06/24/20 13:53 06/24/20 13:53 06/24/20 13:53 06/24/20 13:53 Course - Vital Signs Vital signs: Temp Pulse Resp BP Pulse Ox 98.6 F 88 16 141/95 H 99 06/24/20 13:53 06/24/20 13:53 06/24/20 13:53 06/24/20 13:53 06/24/20 13:53
[2020-06-24 15:28] LABS: ABSOLUTE BASOPHILS # (AUTO) 0.1 10^3/uL (0.0-0.2); ABSOLUTE EOSINOPHILS # (AUTO) 0.2 10^3/uL (0.0-0.6); ABSOLUTE LYMPHOCYTES (AUTO) 2.9 10^3/uL (0.5-4.7); ABSOLUTE MONOCYTES (AUTO) 1.5 10^3/uL (0.1-1.4); BASOPHILS % (AUTO) 0.9 % (0-2); EOSINOPHILS % (AUTO) 1.2 % (0-6); HEMATOCRIT 42.9 % (37.9-51.0); HEMOGLOBIN 14.3 g/dL (13.5-17.0); LYMPHOCYTES % (AUTO) 21.3 % (13-45); MEAN CORPUSCULAR HEMOGLOBIN 27.9 pg (27.0-33.4); MEAN CORPUSCULAR HGB CONC 33.4 g/dL (32.0-36.0); MEAN CORPUSCULAR VOLUME 83 fl (80-97); PLATELET COUNT 556 10^3/uL (150-450); RED BLOOD COUNT 5.14 10^6/uL (4.35-5.55); RED CELL DISTRIBUTION WIDTH 15.2 % (11.5-14.0); SEGMENTED NEUTROPHILS % (AUTO) 65.6 % (42-78); TOTAL CELLS COUNTED % (AUTO) 100 %; WHITE BLOOD COUNT 13.6 10^3/uL (4.0-10.5)
[2020-06-24 15:38] LABS: APPEARANCE,URINE CLEAR; BILIRUBIN,URINE NEGATIVE (NEGATIVE); COLOR,URINE YELLOW; GLUCOSE, URINE NEGATIVE (NEGATIVE); KETONES,URINE NEGATIVE (NEGATIVE); LEUKOCYTE ESTERASE,URINE NEGATIVE (NEGATIVE); NITRITE,URINE NEGATIVE (NEGATIVE); PROTEIN,URINE NEGATIVE (NEGATIVE)
[2020-06-24 15:46] LABS: ALBUMIN 4.3 g/dL (3.5-5.0); ALKALINE PHOSPHATASE 93 U/L (38-126); ANION GAP 12 (5-19); ASPARTATE AMINO TRANSFERASE 23 U/L (17-59); BILIRUBIN,DIRECT 0.4 mg/dL (0.0-0.4); BILIRUBIN,TOTAL 0.6 mg/dL (0.2-1.3); BLOOD UREA NITROGEN 20 mg/dL (7-20); CALCIUM 9.6 mg/dL (8.4-10.2); CARBON DIOXIDE 28 mmol/L (22-30); CHLORIDE 100 mmol/L (98-107); GLUCOSE 89 mg/dL (75-110); POTASSIUM 4.5 mmol/L (3.6-5.0); TOTAL PROTEIN 7.8 g/dL (6.3-8.2)
--- NOTE | 2020-06-24 15:52 | ER Document Report ---
ED General - General Chief Complaint: Redness of Eye Stated Complaint: EYE REDNESS,IRRITATION Time Seen by Provider: 06/24/20 14:22 Mode of Arrival: Ambulatory Notes: HPI: 49-year-old male who presented and was admitted to the hospital here on June 24 secondary to some headache, eye pain, fever for 2 weeks and a headache for 2 weeks. He did have an unequal pupil. He had a CTA of the head which showed a 2 mm aneurysm at the A1 distribution. [facility]surgery at [facility] reviewed the films and did not believe an aneurysm was present. LP was performed. 34 white blood cells and only 1 red blood cell. They did not believe it was an aneurysm. MRI was performed showing no acute abnormality. Patient had some conjunctivitis of bilateral eyes. Dr. Singh supposedly from ophthalmology came and saw the patient. Patient was admitted to the hospital service for further evaluation of a possibly aseptic meningitis and the patient left AGAINST MEDICAL ADVICE. Patient presents here today stating he is still having pain behind both eyes. He still has a frontal headache. No fevers, weakness or numbness, or vomiting. Patient was seen here by the steam meter reader on previous ER visit 3 days ago. ROS: See HPI All other review of systems reviewed and otherwise negative Reviewed vital signs and nursing note as charted by RN. PHYSICAL EXAM: CONSTITUTIONAL: Alert and oriented and responds appropriately to questions. Well-appearing; well-nourished HEAD: Normocephalic; atraumatic EYES: Left pupil is slightly larger than the right and oval in shape and not nonreactive. Bilateral conjunctival injections. No periorbital swelling. Full painless extraocular range of motion ENT: Normal nose; no rhinorrhea; moist mucous membranes; pharynx without lesions noted NECK: Supple without meningismus; non-tender; no cervical lymphadenopathy, no masses CARD: Regular rate and rhythm; no murmurs; symmetric distal pulses RESP: Normal chest excursion without splinting or tachypnea; breath sounds clear and equal bilaterally; no wheezes, no rhonchi, no rales ABD/GI: Normal bowel sounds; non-distended; soft, non-tender; no palpable organomegaly or masses BACK: The back appears normal and is non-tender to palpation EXT: Normal ROM in all joints; non-tender to palpation; no edema SKIN: No acute lesions noted NEURO: CN 2-12 intact; 5/5 bilateral upper and lower extremity strength with sensation intact to light touch PSYCH: The patient's mood and manner are appropriate. Grooming and personal hygiene are appropriate. - Related Data Allergies/Adverse Reactions: No Known Allergies Allergy (Verified 06/21/20 07:34) Past Medical History - General Information source: Patient - Social History Smoking Status: Unknown if Ever Smoked Frequency of alcohol use: None Drug Abuse: None Family History: None Psychiatric Medical History: Denies: Hx Depression Physical Exam - Vital signs Vitals: Temp Pulse Resp BP Pulse Ox 98.6 F 88 16 141/95 H 99 06/24/20 13:53 06/24/20 13:53 06/24/20 13:53 06/24/20 13:53 06/24/20 13:53 Course - Re-evaluation Re-evalutation: Given the history and physical examination I did call Dr. Munson and speak to him directly. He states the intraocular pressures were normal on his examination and states he does not believe acute angle-closure glaucoma is likely. He thought it was more of a possible neurologic condition. He is happy to see the patient in the outpatient clinic. 06/24/20 16:18 I called and spoke directly to the steam meter reader. Labs as recorded. I spoke to the hospitalist as well as reviewed the patient's imaging and laboratory work as well. Given the history and physical I was going to perform a slit-lamp examination and a Shoaib-Pen examination as well as provide oxygen and fluids to see if this was a possibly post LP headache, acute angle-closure glaucoma, increased intraocular pressure, or other acute problem. Given the inflammatory markers elevated with the bilateral eye complaints, and autoimmune pathology is also possible. CTA and MRI of the head as recorded from previous visit however. 06/24/20 16:43 Patient left AMA/eloped once again prior to my reassessment and evaluation. I was able to talk to the patient on the phone. I have explained to him that I would like to evaluate for multiple conditions that could be life-threatening or deadly. I have told him that I did set up an appointment with Dr. Singh the steam meter reader tomorrow. Patient understands this. I have encouraged him to come back to the emergency department for further evaluation. He is refused. - Vital Signs Vital signs: Temp Pulse Resp BP Pulse Ox 98.6 F 88 16 141/95 H 99 10/04/20 13:53 06/24/20 13:53 06/24/20 13:53 06/24/20 13:53 06/24/20 13:53 - Laboratory Result Diagrams: 06/24/20 15:10 06/24/20 15:10 Laboratory results interpreted by me: 06/24/20 06/24/20 15:00 15:10 WBC 13.6 H RDW 15.2 H Plt Count 556 H Absolute Neuts (auto) 9.0 H Absolute Monos (auto) 1.5 H ESR 33 H Urine Urobilinogen 4.0 H Discharge - Discharge Clinical Impression: Irritation of both eyes, Pupil irregular of left eye Headache Qualifiers: Headache type: unspecified Headache chronicity pattern: chronic headache Intractability: not intractable Qualified Code(s): R51.9 - Headache, unspecified; G89.29 - Other chronic pain Condition: Fair Disposition: ELOPED
[2020-06-24 16:17] LABS: C-REACTIVE PROTEIN 5.7 mg/L (<10.0)
[2020-06-24] MEDS ORDERED: NORMAL SALINE 1000 ML 1,000 ML IV ONE (16:19)
[2020-06-24] MEDS ORDERED: MORPHINE SULFATE 10 MG/ML INJ IV ONE (16:26)
[2020-06-24 16:29] LABS: ERYTHROCYTE SEDIMENTATION RATE 33 mm/hr (0-15)
== END 2020-06-24 16:38 | disposition left against medical advice (07) ==
LOC: ER 13:44
DX: H57.02 Anisocoria (principal); H57.9 Unspecified disorder of eye and adnexa; R51.9 Headache, unspecified; G89.29 Other chronic pain
CPT/HCPCS: 36415; 80053; 81001; 85025; 85652; 86140; 99281

== ENCOUNTER 2020-06-28 13:17 | Emergency (ER) | payer SELFPAY ==
[2020-06-28 13:32] VITALS: BP 126/82
--- NOTE | 2020-06-28 13:36 | ER Document Report ---
ED Medical Screen (RME) - General Chief Complaint: Eye Pain Stated Complaint: REVISIT/RIGHT EYE IRRITATION Time Seen by Provider: 06/28/20 13:27 Mode of Arrival: Ambulatory Information source: Patient Notes: Patient presents complaining of unequal pupils for the past 5 to 6 weeks. Patient states he is also had pain behind the left eye that seems to be worse today. Patient reports double vision. Patient denies using any contact lenses or glasses. Patient was admitted to the hospital recently for anisocoria, diplopia, headache, patient left AMA during that admission. Patient was seen here 4 days ago and also left AMA. Patient reports seeing the executive talent acquisition consultant 2 days ago and getting placed on eyedrops that he is supposed to administer every hour although he did not bring his eyedrops with him and he states that they are working and does not have much confidence in the executive talent acquisition consultant. Patient uncertain of what his diagnosis was when he was seen here previously. Patient denies any head injury. I have greeted and performed a rapid initial assessment of this patient. A comprehensive ED assessment and evaluation of the patient, analysis of test results and completion of the medical decision making process will be conducted by additional ED providers. - Related Data Allergies/Adverse Reactions: No Known Allergies Allergy (Verified 06/28/20 13:26) Home Medications: eye drops Past Medical History - Social History Chew tobacco use (# tins/day): No Frequency of alcohol use: None Drug Abuse: None Psychiatric Medical History: Denies: Hx Depression Physical Exam - Vital signs Vitals: Temp Pulse Resp BP Pulse Ox 98.2 F 109 H 15 126/82 H 98 06/28/20 13:26 06/28/20 13:26 06/28/20 13:26 06/28/20 13:26 06/28/20 13:26 - Notes Notes: Anisocoria - Neurological Sanya Coma Scale Eye Opening: Spontaneous Sanya Coma Scale Verbal: Oriented [place] Coma Scale Motor: Obeys Commands Sanya Coma Scale Total: 15 Course - Vital Signs Vital signs: Temp Pulse Resp BP Pulse Ox 98.2 F 109 H 15 126/82 H 98 06/28/20 13:26 06/28/20 13:26 06/28/20 13:26 06/28/20 13:26 06/28/20 13:26
[2020-06-28 14:41] LABS: ABSOLUTE EOSINOPHILS # (AUTO) 0.4 10^3/uL (0.0-0.6); ABSOLUTE LYMPHOCYTES (AUTO) 2.7 10^3/uL (0.5-4.7); ABSOLUTE MONOCYTES (AUTO) 0.8 10^3/uL (0.1-1.4); ABSOLUTE NEUT (AUTO) 8.3 10^3/uL (1.7-8.2); BASOPHILS % (AUTO) 0.1 % (0-2); EOSINOPHILS % (AUTO) 3.6 % (0-6); HEMATOCRIT 42.3 % (37.9-51.0); HEMOGLOBIN 14.5 g/dL (13.5-17.0); LYMPHOCYTES % (AUTO) 22.4 % (13-45); MEAN CORPUSCULAR HEMOGLOBIN 28.1 pg (27.0-33.4); MEAN CORPUSCULAR HGB CONC 34.2 g/dL (32.0-36.0); MEAN CORPUSCULAR VOLUME 82 fl (80-97); MONOCYTES % (AUTO) 6.3 % (3-13); PLATELET COUNT 350 10^3/uL (150-450); RED BLOOD COUNT 5.15 10^6/uL (4.35-5.55); RED CELL DISTRIBUTION WIDTH 15.2 % (11.5-14.0); SEGMENTED NEUTROPHILS % (AUTO) 67.6 % (42-78); TOTAL CELLS COUNTED % (AUTO) 100 %; WHITE BLOOD COUNT 12.3 10^3/uL (4.0-10.5)
[2020-06-28 15:01] LABS: ALBUMIN 3.9 g/dL (3.5-5.0); ALKALINE PHOSPHATASE 92 U/L (38-126); ANION GAP 10 (5-19); ASPARTATE AMINO TRANSFERASE 17 U/L (17-59); BILIRUBIN,DIRECT 0.3 mg/dL (0.0-0.4); BILIRUBIN,TOTAL 0.5 mg/dL (0.2-1.3); BLOOD UREA NITROGEN 15 mg/dL (7-20); C-REACTIVE PROTEIN 19.1 mg/L (<10.0); CALCIUM 9.5 mg/dL (8.4-10.2); CARBON DIOXIDE 27 mmol/L (22-30); CHLORIDE 100 mmol/L (98-107); GLUCOSE 202 mg/dL (75-110); POTASSIUM 3.9 mmol/L (3.6-5.0); TOTAL PROTEIN 7.2 g/dL (6.3-8.2)
[2020-06-28 15:36] LABS: ERYTHROCYTE SEDIMENTATION RATE 43 mm/hr (0-15)
--- NOTE | 2020-06-28 16:36 | ER Document Report ---
ED Eye Complaint - General Chief Complaint: Eye Pain Stated Complaint: REVISIT/RIGHT EYE IRRITATION Time Seen by Provider: 06/28/20 13:27 Mode of Arrival: Ambulatory - HPI Onset: Other - 5 weeks ago Notes: Patient is a 49-year-old male who presents with left eye pain and unequal pupil size. Patient states he noticed that 5 weeks ago his left pupil was larger than his right pupil. He also has been having pain around the left eye. Patient states he has been seeing double vision since this time. He denies any fevers or chills. Patient denies any recent illnesses. He was in the hospital on 06/22 and diagnosed with possible meningitis. He refused treatment and left AMA. It was noted that his CSF did not show any bacterial or viral growth. Ophthalmology did see the patient in the ER when he was here that day and stated that this was likely a neurological issue but would see the patient as an outpatient. Patient returned to the hospital on 06/24 for similar symptoms. On 06/24, patient also left AMA from the ER. Patient has had a CTA, MRI, head CT within the past weak. CTA showed questionable aneurysm but neurology in [facility] stated it was not an aneurysm. Patient did see the bucket operator in the office 2 days ago. He states he had a full eye exam and was given eyedrops. He states that the eyedrops are not helping. He returns today because of the double vision. - Related Data Allergies/Adverse Reactions: No Known Allergies Allergy (Verified 06/28/20 13:26) Home Medications: eye drops Past Medical History - General Information source: Patient - Social History Smoking Status: Current Every Day Smoker Chew tobacco use (# tins/day): No Frequency of alcohol use: None Drug Abuse: None Family History: None Patient has homicidal ideation: No Psychiatric Medical History: Denies: Hx Depression Review of Systems - Review of Systems Notes: CONSTITUTIONAL: No fever, fatigue or weight loss. SKIN: No rash. HENT: No congestion, ear pain, or sore throat. EYES: Positive for left eye pain and double vision. ENDOCRINE: No polyuria or polydipsia. CARDIOVASCULAR: No chest pain or edema. RESPIRATORY: No cough, shortness of breath, congestion, or wheezing. GASTROINTESTINAL: No abdominal pain, nausea, vomiting, bloody stools or diarrhea. GENITOURINARY: No dysuria. MUSCULOSKELETAL: No joint pain or swelling. LYMPHATIC: No swollen glands. NEUROLOGIC: No seizures. No headache, focal weakness or sensory changes. HEMATOLOGIC: No unusual bruising or bleeding. PSYCHIATRIC: No depression or anxiety. Physical Exam - Vital signs Vitals: Temp Pulse Resp BP Pulse Ox 98.2 F 109 H 15 126/82 H 98 06/28/20 13:26 06/28/20 13:26 06/28/20 13:26 06/28/20 13:26 06/28/20 13:26 - Notes Notes: VITAL SIGNS: Within normal limits. GENERAL: No acute distress, non-toxic appearance. HEAD: Normal with no signs of head trauma. EYES: EOMI, conjunctiva normal, no discharge. Pupil is approximately 3 mm on the left and 1 mm on the right. I do not appreciate pupillary reaction bilaterally. Eyes do not feel rigid to palpation. EARS: Hearing grossly intact. NOSE: Normal. NECK: Normal range of motion, no tenderness, supple, no lymphadenopathy, No adenopathy, no JVD. CHEST: Clear breath sounds bilaterally. No wheezes, rales, or rhonchi. CARDIAC: Regular rate and rhythm. S1 and S2, without murmurs, gallops, or rubs. VASCULAR: No Edema. ABDOMEN: Normal and soft with no tenderness, no masses or pulsatile masses. GENITOURINARY: Normal, No tenderness LYMPATHTIC: No lymphadenopathy noted. MUSCULOSKELETAL: Good range of motion of all major joints. Extremities without clubbing, cyanosis or edema. NEUROLOGICAL: Alert and oriented x 3. No focal sensory or strength deficits. Speech normal. Follows commands appropriately. PSYCHIATRIC: Normal Affect, judgement and mood. SKIN: Normal appearance with no rashes or lesions. - HEENT Visual acuity- Right eye: 20/50 Visual acuity- Left eye: 20/100 Visual acuity- Both eyes: 20/70 Corrective lenses worn: No Course - Re-evaluation Re-evalutation: 06/28/20 22:05 I reviewed patient's imaging from prior visits. The bucket operator thought that this was likely neurological. Today, patient does have an elevated CRP. His ESR is still elevated from previous. I am unsure of the significance of this at this time. I reviewed that his CSF did not have any bacterial or viral growth from previous LP. I discussed with [facility] neurology and they reviewed the images. They did not think this was an emergent situation that absolutely requires transfer at this time but stated that they could have him transferred there to evaluate him. Unfortunately, I was informed that there was no bed availability at [facility] by the transfer center. Neurology also stated that patient could follow-up with neuro-ophthalmology outpatient. I discussed this with the patient and offered to transfer him to another hospital that does have neurology available. Patient declined transfer. I also offered to do a slit-lamp exam and Shoaib-Pen exam during his ER stay today but he also declined. Patient states he would just call the neurologist outpatient. He states his eye no longer hurts. While I was working on his discharge paperwork, I was informed that patient eloped from the ER before receiving the paperwork. 06/28/20 22:11 - Vital Signs Vital signs: Temp Pulse Resp BP Pulse Ox 98.2 F 109 H 15 126/82 H 98 06/28/20 13:26 06/28/20 13:26 06/28/20 13:26 06/28/20 13:26 06/28/20 13:26 - Laboratory Result Diagrams: 06/28/20 14:03 06/28/20 14:03 Laboratory results interpreted by me: 06/28/20 06/28/20 14:03 14:03 WBC 12.3 H RDW 15.2 H Absolute Neuts (auto) 8.3 H ESR 43 H Glucose 202 H C-Reactive Protein 19.1 H Discharge - Discharge Clinical Impression: Diplopia, Anisocoria Condition: Stable Disposition: ELOPED
== END 2020-06-28 18:03 | disposition left against medical advice (07) ==
LOC: ER 13:17
DX: H53.2 Diplopia (principal); H57.02 Anisocoria; H57.12 Ocular pain, left eye; F17.200 Nicotine dependence, unspecified, uncomplicated
CPT/HCPCS: 36415; 80053; 85025; 85652; 86140; 99283